=== PATIENT | female | born 1990 | race African-American/Black ===

== ENCOUNTER 2018-04-25 09:40 | Emergency (ER) | payer SELFPAY ==
[~2018-04-25] VITALS: Ht 165.1 cm; Wt 70.3 kg
[2018-04-25 09:51] VITALS: BP 124/54
--- NOTE | 2018-04-25 09:53 | NUR ---
PT PRESENTED TO THE ER WITH A C/O SORE THROAT AND CHILLS. PT HAS SLIGHT REDNESS AT THE BACK OF HER THROAT. PT IS SLIGHTLY FEBRILE. PT IS ON THE MONITOR AND CONTINUOUS PULSE OX. VSS.
[2018-04-25] MEDS ORDERED: ACETAMINOPHEN 325 MG TABLET ONE (10:23)
--- NOTE | 2018-04-25 10:28 | NUR ---
VERBAL ORDER FOR 650MG PO TYLENOL FROM DR. SKY.
[2018-04-25] MEDS ORDERED: CODEINE/PROMETHAZINE HCL 5 ML UDC PO ONE (10:30)
[2018-04-25] MEDS ORDERED: ACETAMINOPHEN ES 500 MG TABLET PO ONE (11:00)
== END 2018-04-25 10:31 | disposition home or self-care (01) ==
LOC: ER 09:42
DX: J03.90 Acute tonsillitis, unspecified (principal)
CPT/HCPCS: 99283; A4606; Z7610